=== PATIENT | male | born 1940 | race Caucasian/White ===

== ENCOUNTER 2017-01-02 08:11 | Day surgery (SDC) | payer MEDICARE, OTHER ==
--- OUTSIDE RECORDS SUMMARY | 2017-01-02 08:14 | XMS | Clinical Summary ---
:1940 Author Organization [facility] Address [address] [place] [address] Phone Care Team Providers Name Role Phone , Primary Care Provider Unavailable Allergies Not on File Current Medications Not on file Active Problems Not on file Social History Tobacco Use Types Packs/Day Years Used Date Never Assessed Sex Assigned at Date Recorded Not on file Last Filed Vital Signs Not on file Plan of Treatment Not on file Results Not on filefrom Last 3 Months
[2017-01-02] MEDS ORDERED: Sodium Chloride 0.9% 20 ML ONE (08:20)
[2017-01-02] MEDS ORDERED: OCTAGAM IVPB SCH (08:30)
[2017-01-02] MEDS ORDERED: ADMIXTURE FEE IVPB SCH (08:30)
[2017-01-02 09:35] VITALS: BP 185/87
[2017-01-02] MEDS ORDERED: FLU VACC TS2017-18 (>65YR) 0.5 ML SYRINGE IM ONE (14:00)
== END 2017-01-02 10:42 | disposition home or self-care (01) ==
LOC: ONC/OP 08:11
PROVIDERS: ATTEND Psychiatry & Neurology Neurology
DX: G61.81 Chronic inflammatory demyelinating polyneuritis (principal); G70.00 Myasthenia gravis without (acute) exacerbation; I10 Essential (primary) hypertension; Z91.041 Radiographic dye allergy status; Z88.6 Allergy status to analgesic agent; Z88.8 Allergy status to other drugs, medicaments and biological substances; Z90.49 Acquired absence of other specified parts of digestive tract; Z96.659 Presence of unspecified artificial knee joint; Z87.19 Personal history of other diseases of the digestive system
CPT/HCPCS: 96365; 96366; A4216; J1568

== ENCOUNTER 2017-02-01 08:01 | Day surgery (SDC) | payer MEDICARE, OTHER ==
[2017-02-01] MEDS ORDERED: OCTAGAM 10% 10 GM, OCTAGAM 10% 20 GM in Admixture Fee 1 EACH IVPB SCH (08:45)
[2017-02-01 09:35] VITALS: BP 140/72; TEMP 97.7
== END 2017-02-01 15:06 | disposition home or self-care (01) ==
LOC: ONC/OP 08:01
PROVIDERS: ATTEND Psychiatry & Neurology Neurology
DX: G61.81 Chronic inflammatory demyelinating polyneuritis (principal); G70.00 Myasthenia gravis without (acute) exacerbation; K21.9 Gastro-esophageal reflux disease without esophagitis; Z79.82 Long term (current) use of aspirin; Z79.51 Long term (current) use of inhaled steroids; Z79.899 Other long term (current) drug therapy; Z88.8 Allergy status to other drugs, medicaments and biological substances; Z88.6 Allergy status to analgesic agent; Z91.041 Radiographic dye allergy status; Z98.890 Other specified postprocedural states; Z87.19 Personal history of other diseases of the digestive system; Z85.828 Personal history of other malignant neoplasm of skin; Z80.0 Family history of malignant neoplasm of digestive organs; Z82.3 Family history of stroke; Z82.49 Family history of ischemic heart disease and other diseases of the circulatory system
CPT/HCPCS: 96365; J1568

== ENCOUNTER 2017-03-10 07:52 | Day surgery (SDC) | payer MEDICARE, OTHER ==
[2017-03-10] MEDS ORDERED: Sodium Chloride 0.9% 20 ML ONE (08:38)
[2017-03-10] MEDS ORDERED: OCTAGAM IVPB SCH ×7 (09:15→09:45)
[2017-03-10 09:33] VITALS: BP 178/84; TEMP 98.2
== END 2017-03-10 11:31 | disposition home or self-care (01) ==
LOC: ONC/OP 07:52
PROVIDERS: ATTEND Psychiatry & Neurology Neurology
DX: G61.81 Chronic inflammatory demyelinating polyneuritis (principal); G70.00 Myasthenia gravis without (acute) exacerbation; K21.9 Gastro-esophageal reflux disease without esophagitis; K59.09 Other constipation; Z79.82 Long term (current) use of aspirin; Z79.52 Long term (current) use of systemic steroids; Z79.899 Other long term (current) drug therapy; Z88.8 Allergy status to other drugs, medicaments and biological substances; Z88.6 Allergy status to analgesic agent; Z91.041 Radiographic dye allergy status; Z98.890 Other specified postprocedural states; Z87.19 Personal history of other diseases of the digestive system
CPT/HCPCS: 96365; 96366; A4216; J1568

== ENCOUNTER 2017-04-07 07:37 | Day surgery (SDC) | payer MEDICARE, OTHER ==
[2017-04-07] MEDS ORDERED: Sodium Chloride 0.9% 20 ML ONE (08:21)
[2017-04-07 08:33] VITALS: TEMP 97.8
[2017-04-07] MEDS ORDERED: OCTAGAM 10% 20 GM, OCTAGAM 10% 10 GM in Admixture Fee 1 EACH IVPB SCH (09:00)
[2017-04-07] MEDS ORDERED: FLU VACC TS2017-18 (>65YR) 0.5 ML SYRINGE IM ONE (09:00)
[2017-04-07 12:47] VITALS: BP 136/75
== END 2017-04-07 12:00 | disposition home or self-care (01) ==
LOC: ONC/OP 07:37
PROVIDERS: ATTEND Psychiatry & Neurology Neurology
DX: G61.81 Chronic inflammatory demyelinating polyneuritis (principal); G70.00 Myasthenia gravis without (acute) exacerbation; I25.10 Atherosclerotic heart disease of native coronary artery without angina pectoris; K21.9 Gastro-esophageal reflux disease without esophagitis; Z79.82 Long term (current) use of aspirin; Z79.51 Long term (current) use of inhaled steroids; Z79.899 Other long term (current) drug therapy; Z88.8 Allergy status to other drugs, medicaments and biological substances; Z88.6 Allergy status to analgesic agent; Z91.041 Radiographic dye allergy status; Z96.659 Presence of unspecified artificial knee joint; Z90.49 Acquired absence of other specified parts of digestive tract; Z98.890 Other specified postprocedural states; Z87.19 Personal history of other diseases of the digestive system; Z86.73 Personal history of transient ischemic attack (TIA), and cerebral infarction without residual deficits
CPT/HCPCS: 96365; 96366; A4216; J1568

== ENCOUNTER 2017-05-05 07:43 | Day surgery (SDC) | payer MEDICARE, OTHER ==
[2017-05-05] MEDS ORDERED: OCTAGAM 10% 10 GM, OCTAGAM 10% 20 GM in Admixture Fee 1 EACH IVPB SCH (08:00)
[2017-05-05] MEDS ORDERED: Sodium Chloride 0.9% 20 ML ONE (08:05)
[2017-05-05 08:29] VITALS: BP 147/80; TEMP 97.9
== END 2017-05-05 11:21 | disposition home or self-care (01) ==
LOC: ONC/OP 07:43
PROVIDERS: ATTEND Psychiatry & Neurology Neurology
DX: G61.81 Chronic inflammatory demyelinating polyneuritis (principal); G70.00 Myasthenia gravis without (acute) exacerbation; Z91.041 Radiographic dye allergy status; Z91.048 Other nonmedicinal substance allergy status; Z98.890 Other specified postprocedural states
CPT/HCPCS: 96365; 96366; A4216; J1568

== ENCOUNTER 2017-06-05 07:41 | Day surgery (SDC) | payer MEDICARE, OTHER ==
[2017-06-05] MEDS ORDERED: OCTAGAM 10% 20 GM, OCTAGAM 10% 10 GM in Admixture Fee 1 EACH IVPB SCH (08:15)
[2017-06-05 08:39] VITALS: BP 183/86; TEMP 97.8
[2017-06-05] MEDS ORDERED: Sodium Chloride 0.9% 20 ML ONE (09:10)
== END 2017-06-05 11:18 | disposition home or self-care (01) ==
LOC: ONC/OP 07:41
PROVIDERS: ATTEND Psychiatry & Neurology Neurology
DX: G61.81 Chronic inflammatory demyelinating polyneuritis (principal); G70.00 Myasthenia gravis without (acute) exacerbation; K59.09 Other constipation; K21.9 Gastro-esophageal reflux disease without esophagitis; Z79.82 Long term (current) use of aspirin; Z79.899 Other long term (current) drug therapy; Z88.8 Allergy status to other drugs, medicaments and biological substances; Z88.6 Allergy status to analgesic agent; Z91.041 Radiographic dye allergy status
CPT/HCPCS: 96365; 96366; A4216; J1568

== ENCOUNTER 2017-07-03 07:40 | Day surgery (SDC) | payer MEDICARE, OTHER ==
[2017-07-03] MEDS ORDERED: Sodium Chloride 0.9% 20 ML ONE (08:30)
[2017-07-03] MEDS ORDERED: OCTAGAM IVPB SCH (08:30)
[2017-07-03] MEDS ORDERED: ADMIXTURE FEE IVPB SCH (08:30)
[2017-07-03] MEDS ORDERED: OCTAGAM 10% 20 GM, OCTAGAM 10% 10 GM in Admixture Fee 1 EACH IVPB SCH (08:45)
[2017-07-03 09:23] VITALS: BP 173/82
== END 2017-07-03 12:23 | disposition home or self-care (01) ==
LOC: ONC/OP 07:40
PROVIDERS: ATTEND Psychiatry & Neurology Neurology
DX: G70.00 Myasthenia gravis without (acute) exacerbation (principal); G61.81 Chronic inflammatory demyelinating polyneuritis; Z91.041 Radiographic dye allergy status; Z88.6 Allergy status to analgesic agent; Z88.8 Allergy status to other drugs, medicaments and biological substances
CPT/HCPCS: 96365; 96366; A4216; J1568

== ENCOUNTER 2017-07-31 07:35 | Day surgery (SDC) | payer MEDICARE, OTHER ==
[2017-07-31] MEDS ORDERED: OCTAGAM 10% 10 GM, OCTAGAM 10% 20 GM in Admixture Fee 1 EACH IVPB SCH (08:45)
[2017-07-31] MEDS ORDERED: Sodium Chloride 0.9% 20 ML ONE (09:10)
[2017-07-31 19:10] VITALS: BP 187/88; TEMP 98
== END 2017-07-31 19:12 | disposition home or self-care (01) ==
LOC: ONC/OP 07:35
PROVIDERS: ATTEND Psychiatry & Neurology Neurology
DX: G70.00 Myasthenia gravis without (acute) exacerbation (principal); G61.81 Chronic inflammatory demyelinating polyneuritis; Z91.041 Radiographic dye allergy status; Z88.6 Allergy status to analgesic agent; Z88.8 Allergy status to other drugs, medicaments and biological substances
CPT/HCPCS: 96365; 96366; A4216; J1568

== ENCOUNTER 2017-09-01 07:51 | Day surgery (SDC) | payer MEDICARE, OTHER ==
[2017-09-01] MEDS ORDERED: OCTAGAM 10% 10 GM, OCTAGAM 10% 20 GM in Admixture Fee 1 EACH IVPB SCH (08:30)
[2017-09-01 10:31] VITALS: BP 115/63; TEMP 97.8
[2017-09-01] MEDS ORDERED: Sodium Chloride 0.9% 30 ML ONE (18:58)
== END 2017-09-01 19:04 | disposition home or self-care (01) ==
LOC: ONC/OP 07:51
PROVIDERS: ATTEND Psychiatry & Neurology Neurology
DX: G70.00 Myasthenia gravis without (acute) exacerbation (principal); G61.81 Chronic inflammatory demyelinating polyneuritis; Z91.041 Radiographic dye allergy status; Z88.6 Allergy status to analgesic agent; Z88.8 Allergy status to other drugs, medicaments and biological substances
CPT/HCPCS: 96413; A4216; J1568

== ENCOUNTER 2017-10-02 07:36 | Day surgery (SDC) | payer MEDICARE, OTHER ==
[2017-10-02] MEDS ORDERED: Sodium Chloride 0.9% 20 ML ONE (08:26)
[2017-10-02] MEDS ORDERED: OCTAGAM 10% 10 GM, OCTAGAM 10% 20 GM in Admixture Fee 1 EACH IVPB SCH (08:30)
[2017-10-02 08:43] VITALS: TEMP 98
[2017-10-02 15:26] VITALS: BP 115/72
== END 2017-10-02 15:26 | disposition home or self-care (01) ==
LOC: ONC/OP 07:36
PROVIDERS: ATTEND Psychiatry & Neurology Neurology
DX: G61.81 Chronic inflammatory demyelinating polyneuritis (principal); G70.00 Myasthenia gravis without (acute) exacerbation
CPT/HCPCS: 96365; 96366; A4216; J1568

== ENCOUNTER 2017-11-01 07:39 | Day surgery (SDC) | payer MEDICARE, OTHER ==
[2017-11-01] MEDS ORDERED: OCTAGAM 10% 10 GM, OCTAGAM 10% 20 GM in Admixture Fee 1 EACH IVPB SCH (09:30)
[2017-11-01 10:10] VITALS: BP 136/64; TEMP 97.8
== END 2017-11-01 12:22 | disposition home or self-care (01) ==
LOC: ONC/OP 07:39
PROVIDERS: ATTEND Psychiatry & Neurology Neurology
DX: G61.81 Chronic inflammatory demyelinating polyneuritis (principal); G70.00 Myasthenia gravis without (acute) exacerbation
CPT/HCPCS: 96365; 96366; J1568

== ENCOUNTER → 2017-12-01 | Day surgery (SDC) | payer MEDICARE, OTHER ==
[~2017-12-01] MED LIST: OCTAGAM 10% 10 GM, OCTAGAM 10% 20 GM in Admixture Fee 1 EACH IVPB SCH; Sodium Chloride 0.9% 20 ML ONE
[2017-12-01 16:48] VITALS: BP 134/81; TEMP 97.7
== END ==
LOC: ONC/OP 07:53
PROVIDERS: ATTEND Psychiatry & Neurology Neurology
DX: G61.81 Chronic inflammatory demyelinating polyneuritis (principal); G70.00 Myasthenia gravis without (acute) exacerbation
CPT/HCPCS: 96365; 96366; A4216; J1568

== ENCOUNTER 2018-01-01 07:28 | Day surgery (SDC) | payer MEDICARE, OTHER ==
[2018-01-01 08:01] VITALS: TEMP 97.8
[2018-01-01] MEDS ORDERED: OCTAGAM 10% 20 GM, OCTAGAM 10% 10 GM in Admixture Fee 1 EACH IVPB SCH (08:15)
[2018-01-01 10:17] VITALS: BP 188/88
== END 2018-01-01 10:42 | disposition home or self-care (01) ==
LOC: ONC/OP 07:28
PROVIDERS: ATTEND Psychiatry & Neurology Neurology
DX: G61.81 Chronic inflammatory demyelinating polyneuritis (principal); G70.00 Myasthenia gravis without (acute) exacerbation; Z79.82 Long term (current) use of aspirin; Z79.899 Other long term (current) drug therapy; Z88.6 Allergy status to analgesic agent; Z88.8 Allergy status to other drugs, medicaments and biological substances; Z91.041 Radiographic dye allergy status
CPT/HCPCS: 96365; 96366; J1568

== ENCOUNTER 2018-02-01 07:45 | Day surgery (SDC) | payer MEDICARE, OTHER ==
[2018-02-01 08:27] VITALS: BP 181/92; TEMP 97.7
[2018-02-01] MEDS ORDERED: OCTAGAM 10% 10 GM, OCTAGAM 10% 20 GM in Admixture Fee 1 EACH IVPB SCH (08:30)
[2018-02-01] MEDS ORDERED: Sodium Chloride 0.9% 20 ML ONE (08:52)
== END 2018-02-01 11:37 | disposition home or self-care (01) ==
LOC: ONC/OP 07:45
PROVIDERS: ATTEND Psychiatry & Neurology Neurology
DX: G61.81 Chronic inflammatory demyelinating polyneuritis (principal); G70.00 Myasthenia gravis without (acute) exacerbation; Z91.041 Radiographic dye allergy status; Z88.8 Allergy status to other drugs, medicaments and biological substances
CPT/HCPCS: 96365; 96366; J1568

== ENCOUNTER 2018-03-05 07:34 | Day surgery (SDC) | payer MEDICARE, OTHER ==
[2018-03-05] MEDS ORDERED: Sodium Chloride 0.9% 20 ML ONE (08:12)
[2018-03-05] MEDS ORDERED: OCTAGAM 10% 30 GM in Admixture Fee 1 EACH IVPB SCH (08:30)
[2018-03-05 08:41] VITALS: TEMP 97.8
[2018-03-05 14:38] VITALS: BP 217/102
== END 2018-03-05 19:28 | disposition home or self-care (01) ==
LOC: ONC/OP 07:34
PROVIDERS: ATTEND Psychiatry & Neurology Neurology
DX: G61.81 Chronic inflammatory demyelinating polyneuritis (principal); G70.00 Myasthenia gravis without (acute) exacerbation; Z88.8 Allergy status to other drugs, medicaments and biological substances; Z91.041 Radiographic dye allergy status
CPT/HCPCS: 96365; 96366; J1568; J1642

== ENCOUNTER 2018-04-02 07:58 | Day surgery (SDC) | payer MEDICARE, OTHER ==
[2018-04-02] MEDS ORDERED: Sodium Chloride 0.9% 20 ML ONE (08:31)
[2018-04-02] MEDS ORDERED: Privigen 10 GM, Privigen 20 GM in Admixture Fee 1 EACH IVPB SCH (08:45)
[2018-04-02 09:11] VITALS: BP 165/83; TEMP 97.7
== END 2018-04-02 10:54 | disposition home or self-care (01) ==
LOC: ONC/OP 07:58
PROVIDERS: ATTEND Psychiatry & Neurology Neurology
DX: G61.81 Chronic inflammatory demyelinating polyneuritis (principal); G70.00 Myasthenia gravis without (acute) exacerbation; Z79.82 Long term (current) use of aspirin; Z79.899 Other long term (current) drug therapy; Z79.52 Long term (current) use of systemic steroids; Z88.6 Allergy status to analgesic agent; Z88.8 Allergy status to other drugs, medicaments and biological substances; Z91.041 Radiographic dye allergy status
CPT/HCPCS: 96365; 96366; J1459

== ENCOUNTER 2018-05-04 07:00 | Day surgery (SDC) | payer MEDICARE, OTHER ==
[~2018-05-04 07:00] MED LIST changes: -OCTAGAM 10% 10 GM, OCTAGAM 10% 20 GM in Admixture Fee 1 EACH IVPB SCH; +Privigen 10 GM, Privigen 20 GM in Admixture Fee 1 EACH IVPB SCH; -Sodium Chloride 0.9% 20 ML ONE
[2018-05-04] MEDS ORDERED: Sodium Chloride 0.9% 20 ML ONE (08:03)
[2018-05-04] MEDS ORDERED: OCTAGAM 10% 20 GM in Admixture Fee 1 EACH IVPB SCH (08:15)
[2018-05-04] MEDS ORDERED: Privigen 10 GM in Admixture Fee 1 EACH IVPB SCH (08:15)
[2018-05-04 11:33] VITALS: BP 109/65; TEMP 97.9
== END 2018-05-04 15:55 | disposition home or self-care (01) ==
LOC: ONC/OP 07:00
PROVIDERS: ATTEND Psychiatry & Neurology Neurology
DX: G61.81 Chronic inflammatory demyelinating polyneuritis (principal); G70.00 Myasthenia gravis without (acute) exacerbation; Z88.8 Allergy status to other drugs, medicaments and biological substances; Z91.041 Radiographic dye allergy status; Z88.6 Allergy status to analgesic agent; Z79.82 Long term (current) use of aspirin; Z79.899 Other long term (current) drug therapy
CPT/HCPCS: 96365; 96366; J1459; J1568

== ENCOUNTER 2018-06-01 07:50 | Day surgery (SDC) | payer MEDICARE, OTHER ==
[2018-06-01] MEDS ORDERED: OCTAGAM 10% 10 GM, OCTAGAM 10% 20 GM in Admixture Fee 1 EACH IVPB SCH (08:30)
[2018-06-01] MEDS ORDERED: Sodium Chloride 0.9% 20 ML ONE (08:58)
[2018-06-01 09:33] VITALS: BP 190/98; TEMP 97.7
== END 2018-06-01 11:40 | disposition home or self-care (01) ==
LOC: ONC/OP 07:50
PROVIDERS: ATTEND Psychiatry & Neurology Neurology
DX: G61.81 Chronic inflammatory demyelinating polyneuritis (principal); G70.00 Myasthenia gravis without (acute) exacerbation; I25.10 Atherosclerotic heart disease of native coronary artery without angina pectoris; Z79.899 Other long term (current) drug therapy; Z88.8 Allergy status to other drugs, medicaments and biological substances; Z91.041 Radiographic dye allergy status
CPT/HCPCS: 96365; 96366; J1568

== ENCOUNTER 2018-06-06 13:13 | Outpatient (CLI) | payer MEDICARE, OTHER ==
--- NOTE | 2018-06-06 14:24 | RAD ---
CHEST TWO VIEWS: History: Chest pain. Comparison: None. FINDINGS: Lungs are clear. No pneumothorax or effusion. Cardiac silhouette and mediastinal contours are within normal limits. IMPRESSION: No acute intrathoracic abnormality. POS: [facility]
== END 2018-06-06 13:14 | disposition home or self-care (01) ==
LOC: RAD 13:13
PROVIDERS: ATTEND Internal Medicine Pulmonary Disease
DX: R06.00 Dyspnea, unspecified (principal)
CPT/HCPCS: 71046

== ENCOUNTER 2018-07-02 07:41 | Day surgery (SDC) | payer MEDICARE, OTHER ==
[~2018-07-02 07:41] MED LIST changes: +OCTAGAM 10% 10 GM, OCTAGAM 10% 20 GM in Admixture Fee 1 EACH IVPB SCH; -Privigen 10 GM, Privigen 20 GM in Admixture Fee 1 EACH IVPB SCH
[2018-07-02] MEDS ORDERED: Sodium Chloride 0.9% 20 ML ONE (08:28)
[2018-07-02 08:49] VITALS: BP 159/85; TEMP 97.6
== END 2018-07-02 13:51 | disposition home or self-care (01) ==
LOC: ONC/OP 07:41
PROVIDERS: ATTEND Psychiatry & Neurology Neurology
DX: G61.81 Chronic inflammatory demyelinating polyneuritis (principal); G70.00 Myasthenia gravis without (acute) exacerbation; Z88.6 Allergy status to analgesic agent; Z88.8 Allergy status to other drugs, medicaments and biological substances; Z91.041 Radiographic dye allergy status
CPT/HCPCS: 96365; 96366; J1568

== ENCOUNTER 2018-08-01 07:44 | Day surgery (SDC) | payer MEDICARE, OTHER ==
[2018-08-01] MEDS ORDERED: Sodium Chloride 0.9% 20 ML ONE (08:44)
[2018-08-01 10:33] VITALS: BP 159/69
== END 2018-08-01 12:45 | disposition home or self-care (01) ==
LOC: ONC/OP 07:44
PROVIDERS: ATTEND Psychiatry & Neurology Neurology
DX: G61.81 Chronic inflammatory demyelinating polyneuritis (principal); G70.00 Myasthenia gravis without (acute) exacerbation; Z88.6 Allergy status to analgesic agent; Z88.8 Allergy status to other drugs, medicaments and biological substances; Z91.041 Radiographic dye allergy status
CPT/HCPCS: 96365; 96366; J1568

== ENCOUNTER 2018-08-31 07:42 | Day surgery (SDC) | payer MEDICARE, OTHER ==
[~2018-08-31 07:42] MED LIST changes: +OCTAGAM 10% 30 GM in Admixture Fee 1 EACH IVPB SCH
[2018-08-31] MEDS ORDERED: Sodium Chloride 0.9% 20 ML ONE (09:44)
[2018-08-31 10:39] VITALS: BP 148/89; TEMP 97.7
== END 2018-08-31 11:24 | disposition home or self-care (01) ==
LOC: ONC/OP 07:42
PROVIDERS: ATTEND Psychiatry & Neurology Neurology
DX: G61.81 Chronic inflammatory demyelinating polyneuritis (principal); G70.00 Myasthenia gravis without (acute) exacerbation; I95.1 Orthostatic hypotension; G45.9 Transient cerebral ischemic attack, unspecified; I25.10 Atherosclerotic heart disease of native coronary artery without angina pectoris; I31.9 Disease of pericardium, unspecified; Z88.6 Allergy status to analgesic agent; Z91.041 Radiographic dye allergy status; Z88.8 Allergy status to other drugs, medicaments and biological substances; Z79.82 Long term (current) use of aspirin; Z79.899 Other long term (current) drug therapy
CPT/HCPCS: 96365; 96366; J1568

== ENCOUNTER 2018-10-01 07:44 | Day surgery (SDC) | payer MEDICARE, OTHER ==
[~2018-10-01 07:44] MED LIST changes: -OCTAGAM 10% 10 GM, OCTAGAM 10% 20 GM in Admixture Fee 1 EACH IVPB SCH
[2018-10-01] MEDS ORDERED: Sodium Chloride 0.9% 20 ML ONE (08:03)
[2018-10-01] MEDS ORDERED: OCTAGAM 10% 30 GM in Admixture Fee 1 EACH IVPB SCH (08:15)
[2018-10-01] MEDS ORDERED: OCTAGAM IVPB SCH (08:30)
[2018-10-01] MEDS ORDERED: ADMIXTURE FEE IVPB SCH (08:30)
[2018-10-01 09:14] VITALS: BP 145/70; TEMP 97.7
== END 2018-10-01 11:10 | disposition home or self-care (01) ==
LOC: ONC/OP 07:44
PROVIDERS: ATTEND Psychiatry & Neurology Neurology
DX: G61.81 Chronic inflammatory demyelinating polyneuritis (principal); G70.00 Myasthenia gravis without (acute) exacerbation; Z88.6 Allergy status to analgesic agent; Z91.041 Radiographic dye allergy status; Z88.8 Allergy status to other drugs, medicaments and biological substances
CPT/HCPCS: 96365; 96366; J1568

== ENCOUNTER 2022-01-19 06:06 | Day surgery (SDC) | payer MEDICARE, OTHER ==
[2022-01-18 13:19] VITALS: BMI 26.4
[2022-01-19] MEDS ORDERED: PROPOFOL 200 MG/20 ML VIAL ONE (08:36)
== END 2022-01-19 10:10 | disposition home or self-care (01) ==
LOC: SDC 06:06
PROVIDERS: ATTEND Internal Medicine Gastroenterology
PROC: 0DJ08ZZ Inspection of Upper Intestinal Tract, Via Natural or Artificial Opening Endoscopic (ICD-10-PCS; principal; 2022-01-19)
PROC: 0DBK8ZX Excision of Ascending Colon, Via Natural or Artificial Opening Endoscopic, Diagnostic (ICD-10-PCS; 2022-01-19)
DX: Z12.11 Encounter for screening for malignant neoplasm of colon (principal); K63.5 Polyp of colon; K57.30 Diverticulosis of large intestine without perforation or abscess without bleeding; K31.84 Gastroparesis; K21.9 Gastro-esophageal reflux disease without esophagitis; G70.00 Myasthenia gravis without (acute) exacerbation; M19.90 Unspecified osteoarthritis, unspecified site; I48.91 Unspecified atrial fibrillation; I25.10 Atherosclerotic heart disease of native coronary artery without angina pectoris; K59.00 Constipation, unspecified; Z86.010 Personal history of colon polyps; Z79.82 Long term (current) use of aspirin; Z79.899 Other long term (current) drug therapy; Z80.0 Family history of malignant neoplasm of digestive organs; Z88.8 Allergy status to other drugs, medicaments and biological substances; Z91.013 Allergy to seafood; Z91.041 Radiographic dye allergy status
CPT/HCPCS: 88305; J2704

== ENCOUNTER 2022-01-21 11:16 | Inpatient (IN) | payer MEDICARE, OTHER ==
[2022-01-21 11:41] LABS: #Eosinphils 0.1 thou/uL (0.0-0.7); #Lymphocytes 1.1 thou/uL (1.20-3.40); #Monocytes 1.2 thou/uL (0.11-0.59); #Neutrophils 10.1 thou/uL (1.40-6.50); %Basophils 0.3 % (0.0-1.0); %Eosinophils 0.6 % (0.0-10.0); %Monocytes 9.8 % (0.0-10.0); %Neutrophils 80.4 % (42.0-75.0); Hemoglobin 14.6 g/dL (14.0-18.0); Mean Corpuscular HGB CONC 34.3 g/dL (32.0-36.0); Mean Corpuscular Hemoglobin 31.8 pg (27.0-31.0); Mean Corpuscular Volume 92.6 fL (78.0-98.0); Mean Platelet Volume 6.2 fL (7.4-10.4); Platelet Count 224 thou/uL (130-400); RBC Distribution Width 12.2 % (11.5-14.5); White Blood Cell (WBC) Count 12.6 thou/uL (4.8-10.8)
[2022-01-21 11:57] LABS: ALT (SGPT) 46 U/L (8-55); AST (SGOT) 45 U/L (5-34); Albumin 4.2 g/dL (3.4-4.8); Alkaline Phosphatase 84 U/L (40-110); Anion Gap 11 mmol/L (10-20); BUN (Urea Nitrogen) 15 mg/dL (8.4-25.7); Bilirubin, Total 2.4 mg/dL (0.2-1.2); CK (CPK) 90 U/L (30-200); Calc. Creatinine Clearance 0 mL/min (70-130); Calcium 9.6 mg/dL (7.8-10.44); Carbon Dioxide 35 mmol/L (23-31); Chloride 98 mmol/L (98-107); Estimated GFR 51; Globulin 3.3 g/dL (2.4-3.5); Glucose 108 mg/dL (83-110); Protein, Total 7.5 g/dL (5.8-8.1); Prothrombin Time 12.9 sec (12.0-14.7); Sodium 141 mmol/L (136-145)
[2022-01-21] MEDS ORDERED: Ondansetron PF 4 MG/2 ML Vial ONE (11:57)
[2022-01-21] MEDS ORDERED: Diltiazem 125 MG/25 ML ONE (11:57)
[2022-01-21 12:04] LABS: Potassium 2.7 mmol/L (3.5-5.1)
[2022-01-21 12:19] LABS: CKMB 2.3 ng/mL (0-6.6)
[2022-01-21] MEDS ORDERED: Aspirin 300 MG Suppository ONE (12:28)
[2022-01-21] MEDS ORDERED: Ondansetron PF 4 MG/2 ML Vial IVP PRN (13:30)
[2022-01-21] MEDS ORDERED: D5 1/2 NS w/20 mEq KCL 1,000 ML IV SCH (13:30)
[2022-01-21] MEDS ORDERED: Ondansetron ODT 4 MG TAB SL PRN (13:30)
[2022-01-21] MEDS ORDERED: Acetaminophen 325 MG TAB PO PRN ×2 (14:26→15:58)
[2022-01-21] MEDS ORDERED: hydrALAZINE 20 MG/ML VIAL SLOW IVP PRN (14:26)
[2022-01-21 15:00] LABS: Magnesium 1.7 mg/dL (1.6-2.6); Phosphorus 2.7 mg/dL (2.3-4.7)
[2022-01-21] MEDS ORDERED: NS 0.9% w/ 40 MEQ KCL 1,000 ML IV SCH (15:00)
[2022-01-21] MEDS ORDERED: Acetaminophen 325 MG Suppository PR PRN (15:57)
[2022-01-21] MEDS ORDERED: Magnesium 2 GM/50 ML(in water) 2 GM in Premix Bag 1 BAG IVPB SCH (16:00)
[2022-01-21] MEDS ORDERED: Electrolyte Replacement Protocol 1 EACH FS SCH (16:00)
[2022-01-21] MEDS ORDERED: Dextrose 5% in Water 1,000 ML IV PRN (16:17)
[2022-01-21] MEDS ORDERED: Dextrose 50% Abboject 50 ML SYRINGE SLOW IVP PRN (16:17)
[2022-01-21 17:47] LABS: Anion Gap 14 mmol/L (10-20); BUN (Urea Nitrogen) 15 mg/dL (8.4-25.7); Calc. Creatinine Clearance 0 mL/min (70-130); Calcium 8.8 mg/dL (7.8-10.44); Carbon Dioxide 29 mmol/L (23-31); Chloride 101 mmol/L (98-107); Estimated GFR 63; Glucose 105 mg/dL (83-110); Sodium 141 mmol/L (136-145)
[2022-01-21 17:53] LABS: Potassium 2.6 mmol/L (3.5-5.1)
[2022-01-21] MEDS ORDERED: Potassium Bicarbonate/Cit Ac 20 MEQ TAB PER TUBE SCH ×2 (18:15→23:30)
[2022-01-21 18:20] LABS: CKMB 1.9 ng/mL (0-6.6)
[2022-01-21] MEDS ORDERED: Atorvastatin Calcium 40 MG TAB PO SCH (21:00)
[2022-01-21] MEDS ORDERED: Atorvastatin Calcium 20 MG TAB PO SCH ×2 (21:00)
[2022-01-21] MEDS: Pyridostigmine Bromide IR 60 MG TAB PER TUBE SCH (22:00)
[2022-01-21] MEDS: Mycophenolate 250 MG CAP PO SCH (22:00)
[2022-01-21] MEDS: Fludrocortisone Acetate 0.1 MG TAB PER TUBE SCH (22:01)
[2022-01-21 23:10] LABS: Anion Gap 14 mmol/L (10-20); BUN (Urea Nitrogen) 19 mg/dL (8.4-25.7); Calc. Creatinine Clearance 0 mL/min (70-130); Calcium 8.8 mg/dL (7.8-10.44); Carbon Dioxide 27 mmol/L (23-31); Chloride 102 mmol/L (98-107); Estimated GFR 59; Glucose 115 mg/dL (83-110); Sodium 140 mmol/L (136-145)
[2022-01-21 23:16] LABS: Potassium 2.9 mmol/L (3.5-5.1)
[2022-01-22] MEDS: Acetaminophen 325 MG TAB PO PRN ×2 (00:50→20:53)
[2022-01-22] MEDS ORDERED: Acetaminophen 325 MG TAB PO SCH (05:15)
[2022-01-22 05:22] LABS: #Lymphocytes 0.5 thou/uL (1.20-3.40); #Neutrophils 9.8 thou/uL (1.40-6.50); %Basophils 0.1 % (0.0-1.0); %Eosinophils 0.2 % (0.0-10.0); %Lymphocytes 4.3 % (21.0-51.0); %Monocytes 9.1 % (0.0-10.0); %Neutrophils 86.3 % (42.0-75.0); Hemoglobin 13.2 g/dL (14.0-18.0); Mean Corpuscular HGB CONC 34.1 g/dL (32.0-36.0); Mean Corpuscular Hemoglobin 32.1 pg (27.0-31.0); Mean Corpuscular Volume 94.2 fL (78.0-98.0); Mean Platelet Volume 6.5 fL (7.4-10.4); Platelet Count 195 thou/uL (130-400); RBC Distribution Width 12.3 % (11.5-14.5); White Blood Cell (WBC) Count 11.4 thou/uL (4.8-10.8)
[2022-01-22 05:41] LABS: ALT (SGPT) 73 U/L (8-55); AST (SGOT) 68 U/L (5-34); Albumin 3.7 g/dL (3.4-4.8); Alkaline Phosphatase 77 U/L (40-110); Anion Gap 12 mmol/L (10-20); BUN (Urea Nitrogen) 22 mg/dL (8.4-25.7); Calc. Creatinine Clearance 0 mL/min (70-130); Calcium 8.8 mg/dL (7.8-10.44); Carbon Dioxide 29 mmol/L (23-31); Cardiac Risk 3.8 (Less than 4.5); Chloride 102 mmol/L (98-107); Cholesterol 133 mg/dl (< 200 Desired); Estimated GFR 57; Globulin 2.8 g/dL (2.4-3.5); Glucose 118 mg/dL (83-110); HDL Cholesterol 35 mg/dL (>60 Neg Risk); LDL Cholesterol, Calculated 81 mg/dL; Protein, Total 6.5 g/dL (5.8-8.1); Sodium 140 mmol/L (136-145); Triglycerides 84 mg/dL (Less than 150)
[2022-01-22 06:01] LABS: Bilirubin Negative (Negative); Blood, Urine 2+ (Negative); Clarity Clear (Clear); Glucose, Urine (Dipstick) Normal (Negative); Ketone, Urine Trace mg/dL (Negative); Leukocyte Negative Leu/uL (Negative); Nitrite Negative (Negative); Protein, Urine (Dipstick) 50 mg/dL (Neg-Trace); RBC/HPF 21-50 HPF (0-3); Specific Gravity, Urine 1.028 (1.002-1.036); Squamous Epithelial None Seen HPF (0-3); Urobilinogen Normal mg/dL (Less than 2); pH, Urine 5.5 (5.0-9.0)
[2022-01-22 06:02] LABS: Bacteria/HPF Rare-Few HPF (None Seen)
[2022-01-22] MEDS: Aspirin 325 mg Enteric Coated Tablet PO SCH (08:56)
[2022-01-22] MEDS: Fludrocortisone Acetate 0.1 MG TAB PER TUBE SCH ×2 (08:56→20:52)
[2022-01-22] MEDS: Mycophenolate 250 MG CAP PO SCH ×3 (08:57→20:53)
[2022-01-22] MEDS: Pyridostigmine Bromide IR 60 MG TAB PER TUBE SCH ×3 (08:57→20:52)
[2022-01-22] MEDS ORDERED: FLU VACC QS2022-23(65YR UP)/PF 240 MCG/0.7 ML SYRINGE IM ONE (09:00)
[2022-01-22] MEDS: Scopolamine 1.5 mg/72 hour Patch TD SCH (11:52)
[2022-01-22] MEDS: Ampicillin/Sulbactam 1.5 GM in Sodium Chloride 0.9% 100 ML IVPB SCH ×3 (13:26→23:40)
[2022-01-22] MEDS: Atorvastatin Calcium 20 MG TAB PO SCH (20:52)
[2022-01-23] MEDS ORDERED: Acetaminophen 325 MG/10.15 ML UDCUP PER TUBE SCH (01:15)
[2022-01-23] MEDS ORDERED: Acetaminophen 325 MG/10.15 ML UDCUP PER TUBE PRN (01:31)
[2022-01-23 05:43] LABS: #Lymphocytes 0.7 thou/uL (1.20-3.40); #Monocytes 0.9 thou/uL (0.11-0.59); #Neutrophils 10.8 thou/uL (1.40-6.50); %Eosinophils 0.2 % (0.0-10.0); %Lymphocytes 5.5 % (21.0-51.0); %Monocytes 7.1 % (0.0-10.0); %Neutrophils 87.2 % (42.0-75.0); Hemoglobin 12.6 g/dL (14.0-18.0); Mean Corpuscular HGB CONC 33.5 g/dL (32.0-36.0); Mean Corpuscular Hemoglobin 31.8 pg (27.0-31.0); Mean Platelet Volume 6.5 fL (7.4-10.4); Platelet Count 166 thou/uL (130-400); RBC Distribution Width 12.3 % (11.5-14.5); Red Blood Cell (RBC) Count 3.95 mill/uL (4.70-6.10); White Blood Cell (WBC) Count 12.4 thou/uL (4.8-10.8)
[2022-01-23] MEDS: Ampicillin/Sulbactam 1.5 GM in Sodium Chloride 0.9% 100 ML IVPB SCH (06:14)
[2022-01-23 06:37] LABS: Anion Gap 14 mmol/L (10-20); BUN (Urea Nitrogen) 29 mg/dL (8.4-25.7); Calc. Creatinine Clearance 0 mL/min (70-130); Calcium 9.1 mg/dL (7.8-10.44); Carbon Dioxide 28 mmol/L (23-31); Chloride 102 mmol/L (98-107); Estimated GFR 67; Glucose 113 mg/dL (83-110); Sodium 141 mmol/L (136-145)
[2022-01-23 06:44] LABS: Potassium 2.8 mmol/L (3.5-5.1)
[2022-01-23] MEDS ORDERED: Electrolyte Replacement Protocol FS PRN (07:00)
[2022-01-23] MEDS ORDERED: Magnesium 2 GM/50 ML(in water) 2 GM in Premix Bag 1 BAG IVPB SCH (08:00)
[2022-01-23] MEDS: Aspirin 325 mg Enteric Coated Tablet PO SCH (09:13)
[2022-01-23] MEDS: Potassium Chloride 20 MEQ TAB PO SCH ×2 (09:13→13:25)
[2022-01-23] MEDS: Fludrocortisone Acetate 0.1 MG TAB PER TUBE SCH (09:15)
[2022-01-23] MEDS: Mycophenolate 250 MG CAP PO SCH (09:17)
[2022-01-23] MEDS: Pyridostigmine Bromide IR 60 MG TAB PER TUBE SCH ×2 (09:18→16:12)
[2022-01-23] MEDS ORDERED: Amlodipine 5 MG TAB PO SCH (10:45)
[2022-01-23] MEDS: Ampicillin/Sulbactam 3 GM in Sodium Chloride 0.9% 100 ML IVPB SCH ×3 (13:25→23:56)
[2022-01-23 18:53] LABS: Potassium 3.2 mmol/L (3.5-5.1)
[2022-01-24] MEDS: Fludrocortisone Acetate 0.1 MG TAB PER TUBE SCH ×3 (00:05→22:33)
[2022-01-24] MEDS: Mycophenolate 250 MG CAP PO SCH ×3 (00:05→22:33)
[2022-01-24] MEDS: Pyridostigmine Bromide IR 60 MG TAB PER TUBE SCH ×4 (00:05→22:33)
[2022-01-24] MEDS: Atorvastatin Calcium 20 MG TAB PO SCH ×2 (00:06→22:32)
[2022-01-24] MEDS: Sodium Chloride 0.9% 1,000 ML IV SCH ×2 (03:04→15:55)
[2022-01-24] MEDS: Ampicillin/Sulbactam 3 GM in Sodium Chloride 0.9% 100 ML IVPB SCH ×3 (05:04→17:16)
[2022-01-24 05:57] LABS: #Lymphocytes 0.6 thou/uL (1.20-3.40); #Monocytes 0.6 thou/uL (0.11-0.59); #Neutrophils 8.4 thou/uL (1.40-6.50); %Basophils 0.1 % (0.0-1.0); %Eosinophils 0.3 % (0.0-10.0); %Lymphocytes 6.6 % (21.0-51.0); %Monocytes 6.1 % (0.0-10.0); %Neutrophils 86.9 % (42.0-75.0); Hemoglobin 12.1 g/dL (14.0-18.0); Mean Corpuscular HGB CONC 33.8 g/dL (32.0-36.0); Mean Corpuscular Hemoglobin 32.2 pg (27.0-31.0); Mean Corpuscular Volume 95.1 fL (78.0-98.0); Mean Platelet Volume 6.8 fL (7.4-10.4); Platelet Count 174 thou/uL (130-400); RBC Distribution Width 12.1 % (11.5-14.5); Red Blood Cell (RBC) Count 3.76 mill/uL (4.70-6.10); White Blood Cell (WBC) Count 9.7 thou/uL (4.8-10.8)
[2022-01-24 06:21] LABS: Anion Gap 12 mmol/L (10-20); BUN (Urea Nitrogen) 30 mg/dL (8.4-25.7); Calc. Creatinine Clearance 0 mL/min (70-130); Calcium 8.7 mg/dL (7.8-10.44); Carbon Dioxide 30 mmol/L (23-31); Chloride 104 mmol/L (98-107); Estimated GFR 83; Glucose 103 mg/dL (83-110); Sodium 143 mmol/L (136-145)
[2022-01-24 06:27] LABS: Potassium 2.9 mmol/L (3.5-5.1)
[2022-01-24 07:35] LABS: Magnesium 2.4 mg/dL (1.6-2.6)
[2022-01-24] MEDS: Potassium Chloride 20 MEQ in Premix Bag 1 BAG IVPB SCH ×4 (08:13→15:55)
[2022-01-24] MEDS: Aspirin 325 mg Enteric Coated Tablet PO SCH (08:18)
[2022-01-24] MEDS ORDERED: Aspirin 300 MG Suppository PR SCH (11:15)
[2022-01-24] MEDS: Scopolamine 1.5 mg/72 hour Patch TD SCH (12:15)
[2022-01-24 13:15] VITALS: BMI 25.7
[2022-01-25] MEDS: Scopolamine 1.5 mg/72 hour Patch TD SCH (00:18)
[2022-01-25] MEDS: Ampicillin/Sulbactam 3 GM in Sodium Chloride 0.9% 100 ML IVPB SCH ×5 (00:18→23:27)
[2022-01-25] MEDS: Sodium Chloride 0.9% 1,000 ML IV SCH ×2 (01:25→15:19)
[2022-01-25] MEDS: Aspirin 300 MG Suppository PR SCH (08:55)
[2022-01-25] MEDS: Pyridostigmine Bromide IR 60 MG TAB PER TUBE SCH ×3 (10:03→21:00)
[2022-01-25] MEDS: Mycophenolate 250 MG CAP PO SCH ×2 (10:03→21:00)
[2022-01-25] MEDS: Fludrocortisone Acetate 0.1 MG TAB PER TUBE SCH (11:27)
[2022-01-25] MEDS ORDERED: cloNIDine 0.1mg/24 Hour PATCH TD SCH (12:00)
[2022-01-25] MEDS: Atorvastatin Calcium 20 MG TAB PO SCH (20:59)
[2022-01-26] MEDS: Ampicillin/Sulbactam 3 GM in Sodium Chloride 0.9% 100 ML IVPB SCH (05:28)
[2022-01-26] MEDS: Sodium Chloride 0.9% 1,000 ML IV SCH ×2 (05:28→20:26)
[2022-01-26] MEDS: Aspirin 300 MG Suppository PR SCH (08:35)
[2022-01-26] MEDS: Mycophenolate 250 MG CAP PO SCH ×2 (08:39→20:25)
[2022-01-26] MEDS: Pyridostigmine Bromide IR 60 MG TAB PER TUBE SCH ×3 (08:39→20:25)
[2022-01-26] MEDS ORDERED: Glycopyrrolate 0.2 MG/ML 5 ML SYRINGE SLOW IVP PRN (14:09)
[2022-01-26] MEDS: Morphine 4 MG/ML VIAL SLOW IVP PRN (22:32)
[2022-01-26] MEDS: Lorazepam 2 MG/ML VIAL SLOW IVP PRN (23:23)
[2022-01-27] MEDS: hydrALAZINE 20 MG/ML VIAL SLOW IVP PRN (14:16)
[2022-01-27] MEDS: Acetaminophen 650 MG Suppository PR PRN (14:16)
[2022-01-27] MEDS: Morphine 4 MG/ML VIAL SLOW IVP PRN (15:12)
[2022-01-27] MEDS: Scopolamine 1.5 mg/72 hour Patch TD SCH (16:38)
[2022-01-27] MEDS: Lorazepam 2 MG/ML VIAL SLOW IVP PRN (17:13)
[2022-01-28] MEDS: Acetaminophen 650 MG Suppository PR PRN (04:35)
[2022-01-28] MEDS: hydrALAZINE 20 MG/ML VIAL SLOW IVP PRN ×2 (08:52→13:09)
[2022-01-28 12:56] VITALS: TEMP 98.3
[2022-01-28 15:03] VITALS: BP 163/77
== END 2022-01-28 13:48 | disposition hospice, inpatient (51) | DRG 64 ==
LOC: ERS 11:16 → NEURO 13:17 → OBSVTOIN 13:17 → T4-A 01-26 15:49
PROVIDERS: ADMIT Internal Medicine; ATTEND Family Medicine
PROC: 0DH67UZ Insertion of Feeding Device into Stomach, Via Natural or Artificial Opening (ICD-10-PCS; principal; 2022-01-21)
DX: I63.9 Cerebral infarction, unspecified (principal); G93.41 Metabolic encephalopathy; J69.0 Pneumonitis due to inhalation of food and vomit; I42.9 Cardiomyopathy, unspecified; Z66 Do not resuscitate; Z51.5 Encounter for palliative care; N17.9 Acute kidney failure, unspecified; G81.94 Hemiplegia, unspecified affecting left nondominant side; G61.81 Chronic inflammatory demyelinating polyneuritis; G70.00 Myasthenia gravis without (acute) exacerbation; Z96.653 Presence of artificial knee joint, bilateral; E87.6 Hypokalemia; I10 Essential (primary) hypertension; I25.10 Atherosclerotic heart disease of native coronary artery without angina pectoris; K21.9 Gastro-esophageal reflux disease without esophagitis; Z96.49 Presence of other endocrine implants; Z20.822 Contact with and (suspected) exposure to COVID-19; R13.12 Dysphagia, oropharyngeal phase; Z79.82 Long term (current) use of aspirin; Z79.899 Other long term (current) drug therapy; I25.2 Old myocardial infarction; Z90.49 Acquired absence of other specified parts of digestive tract; Z98.890 Other specified postprocedural states
CPT/HCPCS: 36415; 36416; 70450; 70551; 71045; 74018; 76705; 80048; 80053; 80061; 81001; 82550; 82553; 83735; 84100; 84443; 84484; 85025; 85610; 85730; 87040; 93005; 93306; 94760; 96361; 96374; 96375; J0295; J0360; J2060; J2270; J2405; J3475; J3480; J3490; J7050; J7517; J7643; U0003; U0005